=== PATIENT | female | born 1985 | race Caucasian/White ===

== ENCOUNTER 2022-08-08 16:33 | Observation (INO) | payer OTHER, SELFPAY ==
[2022-08-08] VITALS (28 sets, daily range): BP systolic 103–133; BP diastolic 64–116; PULSE 67–88; RESP 11–19; TEMP 36.3–36.4; O2SAT 88–100; BMI 24.3
--- NOTE | ~2022-08-08 | US_ITS ---
EXAMINATION: US venous doppler [facility] DATE: 08/09/2022 13:04 INDICATION: +Homans, cancer . TECHNIQUE: Grayscale images without and with compression and Doppler images of the bilateral lower ex tremity veins were obtained. COMPARISON: None FINDINGS: The right common femoral vein, profunda (deep) femoral vein, femoral vein, popliteal vein, peroneal v ein, posterior tibial veins, and greater saphenous vein are patent. The left common femoral vein, profunda femoral vein, femoral vein, popliteal vein, peroneal vein, pos terior tibial veins, and greater saphenous vein are patent. IMPRESSION: 1. Patent bilateral lower extremity veins. No evidence of deep venous thrombosis. Reviewed, dictated and finalized at location K. T GOODS DRIER IMPRESSION: 1. Patent bilateral lower extremity veins. No evidence of deep venous thrombos is.
--- NOTE | ~2022-08-08 | MR_ITS ---
EXAMINATION: MR brain/brain stem wo/w con DATE: 08/09/2022 09:17 INDICATION: Involuntary muscle movement. TECHNIQUE: Magnetic resonance imaging (MRI) of the brain and brainstem was performed without and with 15 mL MultiHance intravenous contrast. COMPARISON: Head CT 08/08/2022 FINDINGS: There are 2 foci of increased T2-weighted signal intensity in the cerebral white matter, wh ich is normal with the patient's age. There is no intracranial hemorrhage, acute infarction, or abnor mal intracranial mass lesion. The ventricles are normal in size. The orbits are normal. The mastoid a ir cells are normal. The paranasal sinuses are clear. IMPRESSION: 1. Normal brain. Reviewed, dictated and finalized at location A. CULTURAL EQUIPMENT DESIGN ENGINEER IMPRESSION: 1. Normal brain.
--- NOTE | ~2022-08-08 | CT_ITS ---
EXAMINATION: CT brain wo con DATE: 08/08/2022 19:00 INDICATION: Syncope, confusion . TECHNIQUE: Computed tomography (CT) of the head was performed without intravenous contrast. The mA wa s adjusted according to patient size. Iterative reconstruction technique was employed. The dose-lengt h product was 529.67 mGy-cm. COMPARISON: None FINDINGS: No acute intracranial hemorrhage or extra-axial fluid collection. No hydrocephalus, mass, or herniation. No acute ischemic infarct. Unremarkable dural venous sinus attenuation. No acute osseous abnormality. The aerated spaces are clear. IMPRESSION: No acute intracranial process. Reviewed, dictated and finalized at location K. GAS ANALYST
--- NOTE | ~2022-08-08 | XR_ITS ---
EXAMINATION: XR chest 1V portable Exam Date/Time: 08/08/2022 18:55 GOLF CART MECHANIC HISTORY: weakness, INVOLUNTARY MOVEMENTS, MEMORY LOSS Comparison: None available. RESULT: Lines, tubes, and devices: None. Lungs and pleura: 6 mm left midlung nodule. 7 mm right lower lobe nodule. Lungs are otherwise clear. Cardiomediastinal silhouette: Stable. Other: No acute osseous or upper abdominal finding. IMPRESSION: No acute cardiopulmonary process. Pulmonary nodules, likely representing infectious/inflammatory gran ulomas, recommend follow-up low-dose CT of the chest in 3-6 months for further evaluation. Reviewed, dictated and finalized at location K. CART MECHANIC IMPRESSION: No acute cardiopulmonary process. Pulmonary nodules, likely representing infect ious/inflammatory granulomas, recommend follow-up low-dose CT of the chest in 3 -6 months for further evaluation.
--- NOTE | 2022-08-08 18:34 | ED.GENADULT ---
HPI - General Adult General Chief complaint: Unspecified Stated complaint: slurred speech Time Seen by Provider: 08/08/22 18:34 Source: patient and family Mode of arrival: ambulatory Limitations: no limitations History of Present Illness HPI narrative: 37 years old white female had 3 episodes on different days of sudden onset of shakes, involuntary muscle movement, and the stiffness with urine incontinence last episode was Wednesday. Subsequently patient have constant not being and gross tremors all over her body. She denies any aggravating or relieving factors. Patient used to be on gabapentin for peripheral neuropathy for 6 months subsequently developed loss of memory and confusion. Gabapentin was gradually weaned off. Patient developed the above symptoms immediately after last dose of gabapentin around 1 week ago. She denies any fever, chills, nausea, vomiting, similar symptoms. She denies any stress or anxiety. History of diabetes, and chondrosarcoma of the hips 3 months ago, declined any radiotherapy or any management. Oncologist at [facility]. Patient does not smoke drinks occasionally denies any drug use or abuse Related Data Home Medications Medication Instructions Recorded Confirmed citalopram 20 mg tablet 20 mg PO DAILY 08/08/22 emtricitabine 200 mg-tenofovir 1 tablet PO DAILY 08/08/22 disoproxil fumarate 300 mg tablet (Truvada) finasteride 1 mg tablet 1 mg PO DAILY 08/08/22 Allergies Allergy/AdvReac Type Severity Reaction Status Date / Time adhesive Allergy Rash Verified 08/08/22 18:45 Penicillins Allergy Itching Verified 08/08/22 18:45 Review of Systems Review of Systems: All systems reviewed & are unremarkable except as noted in HPI and below Exam Narrative: General appearance: Well-developed, well-nourished Skin: Normal color Head: Normocephalic, nontraumatic Eyes: Clear conjunctiva ENT: Oropharynx normal, ears normal, nose normal Neck: Supple, nontender Chest and respiratory: Airway patent, no respiratory distress, no accessory muscle use Heart: Regular rate/rhythm Abdomen: Soft, nontender, no organomegaly, quiet bowel sounds Vascular: Normal peripheral pulses, normal capillary refill. 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 Cook Date: 08/08/22 Time: 22:03 Vital Signs Vital signs: Vital Signs Temperature 36.4 C 08/08/22 16:37 Pulse Rate 88 08/08/22 16:37 Respiratory Rate 18 08/08/22 16:37 Blood Pressure 133/75 08/08/22 16:37 Pulse Oximetry 100 08/08/22 16:37 Oxygen Delivery Room Air 08/08/22 16:37 Temperature 36.4 C 08/08/22 16:37 Pulse Rate 74 08/08/22 18:35 Respiratory Rate 18 08/08/22 17:31 Blood Pressure 128/82 08/08/22 17:31 Pulse Oximetry 100 08/08/22 17:31 Oxygen Delivery Room Air 08/08/22 16:37 Medical Decision Making Differential Diagnosis Differential Diagnosis: Anxiety, stress related symptoms, involuntary muscular movement Vital Signs Vital Signs: Vital Signs Temperature
[2022-08-08 19:24] LABS: Basophils Percent Auto 0.5 % (0.2-1.2); Eosinophils Absolute Auto 0.4 K/mm3 (0-0.3); Hematocrit 44.7 % (37.0-47.0); Hemoglobin 15.2 g/dL (12.0-15.0); Immature Granulocyte Absolute 0.02 K/mm3 (0.00-0.031); Immature Granulocyte Percent A 0.3 % (0-0.5); Lymphocytes Absolute Auto 2.48 K/mm3 (0.9-3.2); Lymphocytes Percent Auto 39.1 % (18.3-44.2); Mean Corpuscular Hemoglobin 32.3 pg (26-34); Mean Corpuscular Volume 94.9 fl (80-100); Monocytes Absolute Auto 0.6 K/mm3 (0.1-0.6); Monocytes Percent Auto 9.3 % (2.6-8.5); Neutrophils Absolute Auto 2.9 K/mm3 (1.3-6.7); Neutrophils Percent Auto 44.8 % (45.5-73.1); Platelet Count Result 216 k/mm3 (150-375); Red Blood Count 4.71 M/mm3 (4.2-5.4); Red Cell Distribution Width 11.9 % (11.5-14.5); White Blood Count 6.4 K/mm3 (4.5-10.0)
[2022-08-08 19:25] LABS: Appearance Urine Clear (Clear); Bilirubin Urine Negative (Negative); Blood Urine Negative (Negative); Color Urine Yellow (Yellow); Glucose Urine UA Negative (Negative); Ketones Urine Negative (Negative); Leukocyte Esterase Ur Negative LEU/UL (Negative); Nitrate Urine Negative (Negative); Protein Urine Negative (Negative); Urobilinogen Urine 0.2 mg/dL (<2.0)
[2022-08-08 19:33] LABS: Ethanol < 10 mg/dL (<10)
[2022-08-08 19:36] LABS: Add Urine Microscopic? YES; Mucus Urine Rare /lpf; RBC Urine 0-2 /hpf (0-2)
[2022-08-08 19:42] LABS: Amphetamine Screen Urine Negative (Negative); Barbiturate Screen Urine Negative (Negative); Benzodiazepines Screen Urine Negative (Negative); Cannabinoid Screen Urine Negative (Negative); Cocaine Screen Urine Negative (Negative); Methadone Screen Urine Negative (Negative); Opiate Screen Urine Negative (Negative); Phencyclidine Screen Urine Negative (Negative)
[2022-08-08 19:49] LABS: Alanine Aminotransferase 24 U/L (6-35); Albumin Level 4.2 g/dL (3.5-5.1); Alkaline Phosphatase 60 U/L (38-126); Anion Gap 7 mmol/L (8-16); Aspartate Amino Transferase 27 U/L (14-36); Bilirubin,Total 0.2 mg/dL (0.2-1.3); Blood Urea Nitrogen 17 mg/dL (7-17); Calcium 8.3 mg/dL (8.4-10.2); Carbon Dioxide 30 mmol/L (22-30); Chloride 102 mmol/L (98-107); Estimated CRCL calculation 73 ml/min; Estimated Glomerular Filt Rate > 60; Glucose 85 mg/dL (65-110); Potassium 4.2 mmol/L (3.4-5.0); Sodium 139 mmol/L (137-145)
[2022-08-08 19:53] LABS: Erythrocyte Sedimentation Rate 10 mm/hr (0-20)
--- NOTE | 2022-08-08 21:12 | PC.NURSE ---
pt ambulating to bathroom independently with steady gait
[2022-08-08] MEDS: IBUPROFEN 600 MG TABLET PO (21:55)
[2022-08-08] MEDS: ACETAMINOPHEN 325 MG TABLET 650 MG PO (21:56)
[2022-08-08] MEDS: diazePAM (*CRX) 5 MG TABLET PO (21:56)
[2022-08-08 22:59] LABS: Influenza A QL RT-PCR Negative (Negative); Influenza B QL RT-PCR Negative (Negative); SARS-CoV-2 RNA PCR Negative
--- NOTE | 2022-08-08 23:25 | ADMGEN ---
This patient, Shey Che, was admitted to 3 [facility] Surg Room 322-01 at 2234. Patient/family oriented to hospital policies and general routines including ID bracelet, bed and alarms, visiting hours, pain management, procedures, bathroom and other care routines, personal items, smoking policy, room service/diet, and visiting hours. Information on how to activate the Rapid Response Team has been discussed. Patient/Family are encouraged to report perceived risks to care and to ask questions if they do not understand what they are told or what they should do.
--- NOTE | 2022-08-08 23:40 | PM.IMHP ---
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 She has had 3 different episodes of sudden onset of shakes, involuntary muscle movement and stiffness with urine incontinence with the last episode being this past Wednesday. The patient is still having difficulty talking at times. She denies any previous history of having seizure activity in the past. The patient had been on gabapentin for neuropathy to her hands and feet but was having difficulty with memory and confusion when she started taking the gabapentin. She was gradually weaned off of the gabapentin. Her last dose of gabapentin was about a week ago. She is not having any fever chills. Her oncologist is in [facility]. She has not yet had a PET scan. She stated that she would undergo the surgery for the cancer but did not want any chemo radiation. Head CT was read as no acute intracranial process. Chest x-ray was read as no acute cardiopulmonary process. Pulmonary nodules likely representing infectious inflammatory granulomas recommend follow-up low-dose CT of the chest in 3-6 months for further evaluation. The patient was given Motrin, Tylenol and Valium in the emergency room. Neurology has been consulted.Toxicology screen was negative influenza A/B and COVID are negative. The patient is being admitted to observation status on the date of service of 08/08/2022. Review of Systems Review of Systems: See HPI All systems reviewed & are unremarkable except as noted in HPI and below Constitutional: Constitutional: Reports as per HPI and Reports no additional constitutional complaints Eyes: Eyes: Reports as per HPI and Reports no additional eye complaints ENT: Reports system reviewed and no additional complaints, except as documented and Reports Normal hearing present Cardiovascular: Cardiovascular: Reports no additional cardiovascular complaints Respiratory: Respiratory: Reports no additional respiratory complaints and Reports no additional respiratory complaints Gastrointestinal: Gastrointestinal: Reports as per HPI and Reports no additional gastrointestinal complaints Musculoskeletal: Musculoskeletal: Reports no additional musculoskeletal complaints Integumentary/Breasts: Skin/Breast: Reports system reviewed and no additional complaints, except as docu and Reports as per HPI Neurologic: Reports system reviewed and no additional complaints, except as documented, Reports as per HPI and Reports Normal hearing present Psychiatric: Psychiatric: Reports no additional psychiatric complaints and Reports as per HPI Endocrine: Endocrine: Reports no additional endocrine complaints Hematologic/Lymphatic: Hematologic/Lymphatic: Reports no additional hematologic/lymphatic complaints Allergic/Immunologic: Allergic/Immunologic: Reports no additional allergic/immunologic complaints PMFSH Past Medical History Medical History (Updated 08/09/22 @ 00:29 by Holly Dobson NP) Anxiety and depression Neuropathy Surgical History Surgical History (Updated 08/09/22 @ 00:29 by Holly Dobson NP) H/O breast augmentation H/O foot surgery Skin graft and toe surgery History of facial surgery Nose surgery and hairline surgery plastic surgery Family History Family History (Updated 08/09/22 @ 00:30 by Holly Dobson NP) Mother Ovarian cancer Father History of kidney cancer Social History Social History (Updated 08/09/22 @ 00:32 by Holly Dobson NP) Social History: The patient is a lifelong nonsmoker. She lives with her significant other. She has no children. 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 She is a transgender. She occasionally uses alcohol. She uses the THC patches for her neuropathy. Her significant other is the durable power workers compensation defense attorney for healthcare. Code status DNR Smoking status: Ne
[2022-08-09] MEDS: ACETAMINOPHEN 325 MG TABLET 650 MG PO ×2 (05:08→20:05)
[2022-08-09 06:00] VITALS: BP 100/57; PULSE 59; RESP 17; TEMP 36.3; O2SAT 98
[2022-08-09 07:15] LABS: Basophils Percent Auto 0.5 % (0.2-1.2); Eosinophils Absolute Auto 0.4 K/mm3 (0-0.3); Hematocrit 43.7 % (37.0-47.0); Hemoglobin 14.9 g/dL (12.0-15.0); Immature Granulocyte Absolute 0.02 K/mm3 (0.00-0.031); Immature Granulocyte Percent A 0.3 % (0-0.5); Lymphocytes Absolute Auto 2.31 K/mm3 (0.9-3.2); Lymphocytes Percent Auto 40.2 % (18.3-44.2); Mean Corpuscular HGB Conc 34.1 g/dl (32-36); Mean Corpuscular Hemoglobin 32.4 pg (26-34); Mean Platelet Volume 9.2 fl (7.4-10.4); Monocytes Absolute Auto 0.7 K/mm3 (0.1-0.6); Monocytes Percent Auto 12.7 % (2.6-8.5); Neutrophils Absolute Auto 2.3 K/mm3 (1.3-6.7); Neutrophils Percent Auto 39.3 % (45.5-73.1); Platelet Count Result 204 k/mm3 (150-375); Red Cell Distribution Width 12.1 % (11.5-14.5); White Blood Count 5.7 K/mm3 (4.5-10.0)
[2022-08-09 07:32] LABS: Alanine Aminotransferase 24 U/L (6-35); Albumin Level 3.6 g/dL (3.5-5.1); Alkaline Phosphatase 57 U/L (38-126); Anion Gap 8 mmol/L (8-16); Aspartate Amino Transferase 25 U/L (14-36); Bilirubin,Total 0.2 mg/dL (0.2-1.3); Blood Urea Nitrogen 18 mg/dL (7-17); Calcium 8.2 mg/dL (8.4-10.2); Carbon Dioxide 26 mmol/L (22-30); Chloride 104 mmol/L (98-107); Estimated CRCL calculation 80 ml/min; Estimated Glomerular Filt Rate > 60; Glucose 90 mg/dL (65-110); Magnesium 1.9 mg/dL (1.6-2.3); Sodium 138 mmol/L (137-145)
[2022-08-09 08:00] VITALS: PULSE 59; RESP 17; O2SAT 98
[2022-08-09] MEDS: CITALOPRAM HYDROBROMIDE 20 MG TABLET PO (08:49)
[2022-08-09] MEDS: hydrOXYzine HCL 25 MG TABLET PO ×2 (08:51→20:05)
--- NOTE | 2022-08-09 09:54 | WPDNEURCNPN ---
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 MRI completed this morning, I do not see any obvious lesions to explain her symptoms. Discussed with patient and her partner that the spells are likely provoked by stress, and that the treatment is outpatient cognitive behavioral therapy. They verbalized understanding. 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 She has had three episodes of sudden shaking with stiffness and urinary incontinence, the last episode being five days ago. Patient reports she had been on gabapentin 300mg daily for neuropathy, but was weaned off due to side-effects, with her last dose (100mg qhs) being about a week ago. Patient presented to the ED where she was noted to have tremors and jerking involuntary movements of the body. She has basic labs and UDS which were negative. CT head was negative for acute process. She was given Motrin, Tylenol, and Valium in the emergency room. MRI done this morning, report pending. EEG has been ordered. Patient continues to have stuttering of the voice and random involuntary jerks of the extremities. Patient was able to describe the spells in more detail. She described them as head shaking, typically to one side with intact awareness, two of them lasting less than 1 minute, and third (most recent one) lasting five minutes. She also had urinary incontinence with the most recent spell. Since the most recent spell, she has had stuttering of her voice. Patient reports her multiple members in her family have seizures, so she was able to tell her what to do for the seizures during the spell. Patient has been under a lot of stress lately. Review of Systems Constitutional: Constitutional: Reports no additional constitutional complaints Eyes: Eyes: Reports no additional eye complaints ENT: Reports system reviewed and no additional complaints, except as documented Cardiovascular: Cardiovascular: Reports no additional cardiovascular complaints Respiratory: Respiratory: Reports no additional respiratory complaints Gastrointestinal: Gastrointestinal: Reports no additional gastrointestinal complaints Genitourinary: Genitourinary: Reports no additional female genitourinary complaints Musculoskeletal: Musculoskeletal: Reports no additional musculoskeletal complaints Integumentary/Breasts: Skin/Breast: Reports system reviewed and no additional complaints, except as docu Neurologic: Reports as per HPI, Reports Abnormal speech present and Reports numbness Psychiatric: Psychiatric: Reports anxiety PMFSH Past Medical History Medical History Anxiety and depression Neuropathy Surgical History Surgical History H/O breast augmentation H/O foot surgery Skin graft and toe surgery Histor
[2022-08-09] MEDS: IBUPROFEN 600 MG TABLET PO (10:23)
--- NOTE | 2022-08-09 11:32 | PM.IMPN ---
Progress Note: A&P Assessment and Plan (1) Involuntary movements: Code(s): R25.9 - Unspecified abnormal involuntary movements Status: Acute Assessment and Plan: The patient was on gabapentin but gradually was weaned off. She developed these episodes since being off the Gabapentin. Neuro consulted and appreciate their input. She had MRI brain that is pending. Could be related to a paraneoplastic etiology or from brain mass but overall feel this is related to stress response. EEG ordered. Follow up on these results. (2) Chondrosarcoma: Code(s): C41.9 - Malignant neoplasm of bone and articular cartilage, unspecified Status: Acute Assessment and Plan: Patient has sarcoma. Missed her PET scan appointment. Encouraged her to reschedule as soon as possible. Mentioned the lung nodules which are probably benign but that the PET scan will be able to determine this. She is a DNR. Patient has an oncologist in [facility]. +Homans but no edema. Will check doppler. (3) Anxiety and depression: Code(s): F41.9 - Anxiety disorder, unspecified; F32.A - Depression, unspecified Status: Acute Assessment and Plan: [place] contributing to her above symptoms. Continue with citalopram (4) Transgender: Code(s): Z78.9 - Other specified health status Status: Acute Assessment and Plan: Stable. Continue with Truvada and finasteride (5) Neuropathy: Code(s): G62.9 - Polyneuropathy, unspecified Status: Acute Assessment and Plan: She is now off of her Gabapentin. She uses marijuana patches for the neuropathy. Subjective Date/time seen: 08/09/22 11:32 Interval history: 37yo female who is transgender and recently diagnosed with sarcoma here for involuntary movements. She developed UE and LE neuropathy symptoms from COVID and was treated with Gabapentin. She took herself off gabapentin slowly with her last dose about 1 week ago. She took herself off gabapentin because it made her forgetful, crazy with crying spells and acting rashly. She began to have these involuntary movements a few days after stopping the gabapentin. No new medications otherwise. She also has stuttering speech which is related to her involuntary movements. She no longer works because of the neuropathy. She had headache and neck pain earlier today but better with the ibuprofen. She requires a PET scan. She missed the 1st appointment and this is being rescheduled. Exam Narrative: AF 97.4 100/57 59 17 98% ra Gen - NARD sitting up in bed Chest - CTA bilaterally, nml RR CV - RRR S1/S2. Abd - Soft, NT/ND, Positive BS Ext - No pedal edema. Positive Homans to the left. Neuro - Alert and oriented. Stuttering and halting speech. Speech is clear. Diffuse weakness Psych - Nml mood and affect. good eye contact Skin - Warm and dry Objective Data Vital Signs Vital Signs: Vital Signs - 24 hr 08/08/22 16:37 08/08/22 17:31 08/08/22 18:35 Temperature 97.6 F Pulse Rate 88 80 74 Respiratory Rate 18 18 Blood Pressure 133/75 128/82 Pulse Oximetry 100 100 Oxygen Delivery Room Air 08/08/22 17:31 08/08/22 17:32 08/08/22 17:33 Temperature Pulse Rate 81 83 80 Respiratory Rate 17 15 16 Blood Pressure 133/116 H 128/82 Pulse Oximetry 100 100 100 Oxygen Delivery 08/08/22 17:45 08/08/22 18:00 08/08/22 18:01 Temperature Pulse Rate 74 77 72 Respiratory Rate 17 16 Blood Pressure 112/73 Pulse Oximetry 100 98 99 Oxygen Delivery 08/08/22 18:15 08/08/22 18:16 08/08/22 18:30 Temperature Pulse Rate 68 70 69 Respiratory Rate 19 11 L 18 Blood Pressure 107/68 Pulse Oximetry 98 99 98 Oxygen Delivery 08/08/22 18:31 08/08/22 19:02 08/08/22 19:15 Temperature Pulse Rate 72 Respiratory Rate 15 Blood Pressure 108/69 Pulse Oximetry 99 96 100 Oxygen Delivery 08/08/22 19:23 08/08/22 19:30 08/08/22 19:31 Temperature
[2022-08-09 14:00] VITALS: BP 106/70; PULSE 76; RESP 20; TEMP 36.4; O2SAT 95
--- NOTE | 2022-08-09 17:27 | PHAR ---
The patient's home med of Emtricitabine/Tenofovir 200mg/300mg has been verified. (one tab in bottle)
--- NOTE | 2022-08-09 17:49 | PHAR ---
RX [id number] [facility] BOTTLE IDENTIFIED TO CONTAIN DRUG NAME: FINASTERIDE INGREDIENTS: FINASTERIDE -- 1 MG RELATED DOCUMENTS: DRUGDEX EVALUATIONS - FINASTERIDE COLOR: BROWN SHAPE: TAKOTNA IMPRINT: 36 , H FORM: ORAL TABLET
[2022-08-09] MEDS: diazePAM (*CRX) 5 MG TABLET PO (22:19)
[2022-08-09 23:09] VITALS: BP 102/60; PULSE 64; RESP 16; TEMP 36.6; O2SAT 100
[2022-08-10 06:56] VITALS: BP 102/60; PULSE 64; RESP 16; TEMP 36.6; O2SAT 99
--- NOTE | 2022-08-10 07:00 | PC.NURSE ---
At 2156 on 08/09/2022 pt was highly upset she didn't get any pain meds and her IV site in her left wrist was hurting really bad due to history of neuropathy and wants her IV to be removed and placed somewhere else during change of shift. Pt was crying, anxious, and irritable. Pt's boyfriend, Ingris was highly upset and yelling at the nurses in regards to the pt's current status of pain and requesting for Valium. RN was attending another pt due to displaying increased confusion, increased aggression, and kept trying to get out of bed during the time of this event. Once pt was settled and son of the pt was available to sit with pt, RN attended to pt boyfriend and made him aware I will attend to pt when I get her meds and I will request Valium from doctor. Ingris went back to pt room, moments later pt continued to be impatient and kept requesting meds and pt became even more aggitated/anxious/irritable and addressed her concerns with pain and request for Valium. Pt was consoled and Tylenol, Atarax was administered to pt while waiting for doctors order of Valium to be placed and verified. Pt IV removed from left wrist. Pt was resting comfortably in bed, sleeping and pt boyfriend left for the night. Pt boyfriend was consoled and reassured that the pt will be taken care of. Pt boyfriend was satisfied and left for the night around 2029 on 08/09/2022. Upon receiving Valium @2219 on 08/09/2022 pt was given med. Pt slept throughout the night and no other complaints were voiced.
[2022-08-10 08:00] VITALS: PULSE 64; RESP 16; O2SAT 99
[2022-08-10] MEDS: EMTRICITABINE-TENOFOVIR 100 MG-150 MG TABLET 2 TAB PO (08:58)
[2022-08-10] MEDS: CITALOPRAM HYDROBROMIDE 20 MG TABLET PO (08:58)
[2022-08-10] MEDS: ACETAMINOPHEN 325 MG TABLET 650 MG PO (09:00)
--- NOTE | 2022-08-10 09:49 | WPDNEUROLOGY ---
Neurology EEG Report General Information Date of Study: 08/10/22 TEST eeg DIAGNOSIS Seizure-like Kayla CONDITION OF RECORDING awake and drowsy EEG NUMBER [id number] CLINICAL HISTORY patient reported she had 3 episodes of uncontrollable shaking 2 days ago and has stuttering of her speech since then EEG DESCRIPTION basic resting occipital frequency consists of low voltage 9 to 10 hertz per 2nd alpha admixed with low-voltage 15 to 18 hertz per 2nd beta. Low-voltage beta activity seen diffusely during drowsiness admixed with intermittent EKG artifact. Hyperventilation not done. Photic stimulation not done. Non paroxysmal. Nonfocal. Nonlateralizing. IMPRESSION Normal record
--- NOTE | 2022-08-10 12:21 | PM.DS ---
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 Please see H&P for details. Hospital Course: The patient presented with involuntary movements and stuttering speech. She was on gabapentin prior to admisison but she gradually weaned herself off. She developed these episodes since being off the Gabapentin. Neuro consulted and followed along. MRI brain was normal. CXR clear but with small lung nodules noted. EEG showed normal record. Venous doppler negative for DVT. Labs workup was unrevealing. Urine culture negative. Mild eosinophilia noted but felt related to her cancer. Patient has sarcoma. She missed her PET scan appointment. Encouraged her to reschedule as soon as possible. Mentioned the lung nodules which are probably benign but that the PET scan will be able to determine this. She is a DNR. Patient has an oncologist in [facility]. She requested information about oncology here and we will provide. She had improvement but still had halting speech. SHe overall did well and was able to be discharged home on 08.10.22 Status at Discharge Cognitive/behavioral status at discharge: stable Time Spent with Patient Time attestation: Total time spent providing and/or coordinating discharge services: 34 minutes Time spent: Greater than 30 minutes Exam Narrative: AF 97.8 102/60 64 16 99% ra Gen - NARD sitting up in bed Chest - CTA bilaterally, nml RR CV - RRR S1/S2. Abd - Soft, NT/ND, Positive BS Ext - No pedal edema. Positive Homans to the left. Neuro - Alert and oriented.Halting speech. Psych - Nml mood and affect. good eye contact. in good spirits Skin - Warm and dry Discharge Plan Discharge Attending physician on discharge: Emanuel Hong Consulting providers: Nida Cook Discharging Clinician: Emanuel Hong Anticipated Discharge Date/Time: 08/10/22 12:30 Patient Disposition: Home, Self-Care Activity: as tolerated Diet: regular Discharge Instructions: Take precautions to avoid falls. Contact your doctor or call 911 and come to the Emergency Room if you have increasing weakness or other worrisome symptoms. Follow-up with your primary care provider tomorrow as scheduled. Follow-up with Neurology in 4-6 weeks. Please call for an appointment. Follow-up with your oncologist as soon as possible to schedule your PET scan. Thank you for using [facility] for your health care needs. Patient Instructions: Antibiotic Form Stand Alone Forms: General Discharge Information Follow-up/Referrals: Star Sanders MD [Physician] - Call for Appointment Nida Cook MD [Physician] - Call for Appointment [facility] - Call for Appointment Discharge Medications: Continued citalopram 20 mg Tablet 20 mg PO DAILY finasteride 1 mg Tablet 1 mg PO DAILY emtricitabine-tenofovir (TDF) [Truvada] 200-300 mg Tablet 1 tablet PO DAILY hydroxyzine HCl 25 mg Tablet 25 mg PO TID PRN (Reason: Anxiety) Date of admission: 08/08/22 21:46 Primary Care Provider: ZhangMyrna Admitting Provider: Moo Chappell V. Attending
[2022-08-10] MEDS: hydrOXYzine HCL 25 MG TABLET PO (12:27)
== END 2022-08-10 13:20 | disposition home or self-care (01) ==
LOC: ANHED 22:06 → ANH3MEDSUR 22:30
PROVIDERS: Nurse Practitioner; Admitting Provider Internal Medicine; Emergency Provider Emergency Medicine; PCP Nurse Practitioner; Visit Provider Internal Medicine
DX: R47.81 Slurred speech (principal); R25.9 Unspecified abnormal involuntary movements; F41.9 Anxiety disorder, unspecified; F32.A Depression, unspecified; F44.5 Conversion disorder with seizures or convulsions; R91.8 Other nonspecific abnormal finding of lung field; C41.4 Malignant neoplasm of pelvic bones, sacrum and coccyx; R32 Unspecified urinary incontinence; F10.90 Alcohol use, unspecified, uncomplicated; G62.9 Polyneuropathy, unspecified; Z78.9 Other specified health status; Z66 Do not resuscitate; Z20.822 Contact with and (suspected) exposure to COVID-19; Z79.899 Other long term (current) drug therapy
CPT/HCPCS: 36415; 70450; 70553; 71045; 80053; 80307; 81001; 83735; 84443; 85025; 85652; 87086; 87088; 87636; 93970; 95816; 99285; A9270; A9577; G0378; G0379

== ENCOUNTER 2022-09-17 12:22 | Outpatient (RCR) | payer OTHER, SELFPAY ==
--- NOTE | 2022-09-17 13:38 | OTOPEVDC ---
Assessment and note entered by Marek Mobley, OTR/L, CHT Thank you for referring Shey Che to [facility].? An evaluation has been completed. No further treatment is needed. Evaluation Information Assessment Status Evaluation Diagnosis Peripheral Neuropathy Subjective Information Patient has been experiencing PN pain and numbness for about a year. She states that doctors are calling this long COVID . 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 She has good days and bad days. She notices that if she does too much activity or pushes herself she finds she cannot walk the next day or use her hands. She has installed bars in her shower and a railing to go down the 5 steps at her house. She does yoga and states this helps with her flexibility. Reported Pain Level Pain Score 7,8: Self Report Assessment OT Clinical Summary Patient referred to outpatient OT with dx of peripheral neuropathy. Patient states she has been experiencing pain and numbness for about a year following COVID. Functionally she is experiencing limitations due to weakness, pain, and fatigue. Issued strengthening HEP and she demonstrates excellent understanding. Recommend that she continues to stay active and maintain her flexibility through continued yoga practice. Patient in agreement today with discharging with HEP. Plan of Care OT Services Indicated No
--- NOTE | 2022-09-17 14:31 | PTOPEVDC ---
Assessment and note entered by Shilo Frederick, PT Thank you for referring Shey Che to [facility].? An evaluation has been completed. No further treatment is needed. Evaluation Information Assessment Status Evaluation Diagnosis Peripheral polyneuropathy Onset after Covid Subjective Information Patient reports a significant musculoskeletal history along with development of peripheral neuropathy after COVID. The patient reports falls along with burning and numbness in the hands past the wrists and feet up to above the ankles. She has started using a cane when out in unlevel terrain or adverse weather. Also reports some memory lapses. Reported Pain Level Pain Score 7,8: Self Report Pain Score 7,8: Self Report Additional Pain Score Comments Reports starting Cymbalta, but that she was informed it would take awhile to get in her system . Assessment PT Clinical Summary Shey is a 37 year old female coming into the clinic for weakness and decreased sensation in her lower extremities causing balance issues and decreased functional mobility. Patient was given HEP to work on ankle, hip, and knee strength, along with standing balance activities. Patient not picked up secondary to the long drive from [place] to the clinic and the patient's good understanding of her prognosis and history of therapy before. Did encourage patient to ask for new order if these exercises get too hard or too easy to get a new HEP. Plan of Care PT Services Indicated No Treatment Frequency and discharge from physical therapy with HEP Duration
== END 2022-09-18 10:51 | disposition home or self-care (01) ==
LOC: ANHOT 12:22
PROVIDERS: PCP Nurse Practitioner; Visit Provider Nurse Practitioner
DX: G62.9 Polyneuropathy, unspecified (principal)
CPT/HCPCS: 97110; 97161; 97165